=== PATIENT | male | born 1960 | race Caucasian/White ===

== ENCOUNTER → 2023-11-26 10:13 | Outpatient (REF) | payer MEDICARE, MEDICAID, SELFPAY | LOC: RAD 10:13 | PROVIDERS: ATTENDING PHYSICIAN Specialist; FAMILY PHYSICIAN Nurse Practitioner; REFERRING PHYSICIAN Internal Medicine | DX: N41.1 Chronic prostatitis (principal) | CPT/HCPCS: 74176 ==

== ENCOUNTER → 2024-11-29 11:05 | Outpatient (REF) | payer MEDICARE, MEDICAID, SELFPAY | LOC: RAD 11:05 | PROVIDERS: ATTENDING PHYSICIAN Internal Medicine Gastroenterology; FAMILY PHYSICIAN Internal Medicine | DX: R63.4 Abnormal weight loss (principal) | CPT/HCPCS: 74177; Q9967 ==